=== PATIENT | female | born 1945 | race Hispanic/Latino ===

== ENCOUNTER 2016-10-12 11:16 | Outpatient (CLI) | payer MEDICARE ==
--- NOTE | 2016-10-12 13:06 | Ultrasound Report ---
Pelvic ultrasound: Endometrial hyperplasia. Endovaginal and transabdominal imaging demonstrates an anteflexed uterus measuring 3.3 x 3.8 x 6.0 cm. There is a 15 mm hypoechoic, sharply defined, mass in the posterior myometrium. The endometrial thickness is 7 mm. It is generally homogeneous. There is no endometrial fluid. The right ovary measures 15 mm and the left ovary measures 18 mm. Both are echogenically unremarkable. In 2015 endometrial thickness was measured at 9.4 mm. The uterine mass is essentially unchanged. Impressions: 1. Endometrial thickening. Slightly improved since 2015. 2. Stable uterine fibroid.
== END 2016-10-12 11:17 | disposition home or self-care (01) ==
LOC: SPVWC 11:16
PROVIDERS: ATTEND Internal Medicine Hematology & Oncology
DX: N85.2 Hypertrophy of uterus (principal); N64.89 Other specified disorders of breast
CPT/HCPCS: 76830; 76856